=== PATIENT | female | born 1955 | race Caucasian/White ===

== ENCOUNTER 2019-08-15 05:52 | Day surgery (SDC) | payer MEDICARE, OTHER ==
[2019-08-15] MEDS ORDERED: Lactated Ringers 1,000 ML IV SCH (06:30)
[2019-08-15] MEDS ORDERED: DIPRIVAN 200 MG/20 ML IV ONE ×2 (07:00→07:16)
[2019-08-15 08:26] VITALS: PULSE 70
[2019-08-15 08:56] VITALS: O2SAT 98
[2019-08-15 09:01] VITALS: BP 140/72
--- NOTE | 2019-08-15 09:10 | OP ---
SURGERY DATE/TIME: 08/15/2019 0700 PREOPERATIVE DIAGNOSIS: Left lower quadrant abdominal pain. POSTOPERATIVE DIAGNOSIS: Normal colon. PROCEDURE: Colonoscopy. SURGEON: Dr. Edmond. ANESTHESIA: MAC. Medications given by anesthesia department. HISTORY: The patient is a 64 year-old white female presenting now for colonoscopic evaluation due to the presence of left lower quadrant abdominal pain for the past three months. The patient has never had a previous colonoscopy. The patient was suggested to have endoscopic evaluation and she was apprised of the risks of the procedure including the risk of perforation, phlebitis, untoward reaction to medication, bleeding and missed lesions. The patient verbalized her understanding and desired to have the procedure performed. DESCRIPTION OF PROCEDURE: The patient was given the medications by the anesthesia department. She had continuous pulse oximetry, ECG monitoring, intermittent blood pressure monitoring and tidal CO2 monitoring during the examination. She was placed in the left lateral decubitus position. A digital rectal examination was performed and revealed normal anal sphincter tone and no masses. The flexible Olympus pediatric colonoscope was used to intubate the rectum. A view of the colon was developed sequentially to the cecum. Upon insertion and withdrawal there were no mucosal lesions were encountered. It was noted to be quite tortuous throughout the left side of the colon but no mucosal lesions were encountered. The scope was removed from the patient who tolerated the procedure well and was sent back to OP recovery in good condition. The prep was noted to be good.
== END 2019-08-15 08:45 | disposition home or self-care (01) ==
LOC: SDC 05:52
PROVIDERS: ATTEND Family Medicine
DX: R10.32 Left lower quadrant pain (principal); I10 Essential (primary) hypertension; K21.9 Gastro-esophageal reflux disease without esophagitis
CPT/HCPCS: J2704